=== PATIENT | male | born 1975 | race African-American/Black ===

== ENCOUNTER 2024-04-05 14:51 | Emergency (ER) | payer BC, OTHER ==
[2024-04-05] MEDS: Proparacaine 0.5% Ophth Soln 15 ML Bottle EYERT STA (19:23)
[2024-04-05] MEDS ORDERED: Diphtheria,Pertussis(Acell),Tetanus Vaccine 0.5 ML Syringe ONE (20:26)
[2024-04-05] MEDS: Diphtheria,Pertussis(Acell),Tetanus Vaccine 0.5 ML Syringe IM ONE (20:46)
[2024-04-05] MEDS: Proparacaine 0.5% Ophth Soln 15 ML Bottle EYEBOTH STA (20:47)
[2024-04-05] MEDS: Polymyxin B/Trimethoprim 10 ML Bottle EYERT ONE (21:13)
[2024-04-05 21:16] VITALS: BP 157/97; PULSE 72
== END 2024-04-05 21:15 | disposition home or self-care (01) ==
LOC: MW.ED 14:51
DX: S05.01XA Injury of conjunctiva and corneal abrasion without foreign body, right eye, initial encounter (principal); Z23 Encounter for immunization; V53.5XXA Driver of pick-up truck or van injured in collision with car, pick-up truck or van in traffic accident, initial encounter
CPT/HCPCS: 90471; 90715; 99283; A9270; J3490